=== PATIENT | female | born 1990 | race Caucasian/White ===

== ENCOUNTER 2021-03-04 12:27 | Outpatient (REF) | payer OTHER, SELFPAY | END 2021-03-04 12:28 | disposition home or self-care (01) | LOC: NCHCN 12:27 | PROVIDERS: Visit Provider Nurse Practitioner Family | DX: S80.869A Insect bite (nonvenomous), unspecified lower leg, initial encounter (principal); L08.89 Other specified local infections of the skin and subcutaneous tissue; W57.XXXA Bitten or stung by nonvenomous insect and other nonvenomous arthropods, initial encounter | CPT/HCPCS: 87070; 87205 ==